=== PATIENT | female | born 1990 | race African-American/Black ===

== ENCOUNTER 2021-12-01 13:57 | Observation (INO) | payer MEDICAID ==
[~2021-12-01] VITALS: Ht 172.7 cm; Wt 104.3 kg
[2021-12-01] MEDS ORDERED: LACTATED RINGER'S 1,000 ML IV ONE (15:00)
[2021-12-01 15:52] LABS: Amphetamine Screen, Urine NEGATIVE (NEGATIVE); Barbiturate Scree,Urine NEGATIVE (NEGATIVE); Benzodiazephine Screen, Urine NEGATIVE (NEGATIVE); Cannabinoid Screen, Urine POSITIVE (NEGATIVE); Cocaine Screen, Urine NEGATIVE (NEGATIVE); Opiate Scree,Urine NEGATIVE (NEGATIVE); Phencyclidine Screen, Urine NEGATIVE (NEGATIVE)
[2021-12-01] MEDS ORDERED: BETAMETHASONE ACET (30mg/5ml) 5ml Vial 6mg/ml IM ONE (17:00)
[2021-12-01] MEDS ORDERED: TERBUTALINE SULFATE 1 MG/ML 1ML VIAL SC ONE (17:00)
[2021-12-01] MEDS ORDERED: NIF10C PO (17:10)
[2021-12-01] MEDS ORDERED: NIFEdipine 10 MG CAP PO ONE (18:30)
== END 2021-12-01 19:52 | disposition home or self-care (01) ==
LOC: LDRP 13:57 → UNDOADMOB 13:57 → LDRP 14:05
PROVIDERS: ADMIT Obstetrics & Gynecology; ATTEND Obstetrics & Gynecology
DX: O09.32 Supervision of pregnancy with insufficient antenatal care, second trimester (principal); O62.9 Abnormality of forces of labor, unspecified; Z3A.27 27 weeks gestation of pregnancy; Z79.899 Other long term (current) drug therapy
CPT/HCPCS: 76805; 80307; 96360; 96372; G0378; J0702

== ENCOUNTER 2021-12-02 16:20 | Observation (INO) | payer MEDICAID ==
[~2021-12-02] VITALS: Ht 172.7 cm; Wt 100.7 kg
[~2021-12-02 16:20] MED LIST: NIF10C PO
[2021-12-02] MEDS ORDERED: BETAMETHASONE ACET (30mg/5ml) 5ml Vial 6mg/ml IM ONE (16:45)
== END 2021-12-02 17:28 | disposition home or self-care (01) ==
LOC: UNDOADMOB 16:20 → LDRP 16:20 → UNDODISOB 17:28
PROVIDERS: ADMIT Obstetrics & Gynecology; ATTEND Obstetrics & Gynecology
DX: O60.03 Preterm labor without delivery, third trimester (principal); O99.333 Smoking (tobacco) complicating pregnancy, third trimester; F17.200 Nicotine dependence, unspecified, uncomplicated; O99.323 Drug use complicating pregnancy, third trimester; F12.90 Cannabis use, unspecified, uncomplicated; Z3A.29 29 weeks gestation of pregnancy
CPT/HCPCS: 59025; 81002; 96372; G0378

== ENCOUNTER 2021-12-07 03:47 | Inpatient (IN) | payer MEDICAID ==
[~2021-12-07] VITALS: BP 133/82
[2021-12-07] MEDS ORDERED: LACTATED RINGER'S 1,000 ML IV ONE ×2 (04:30)
[2021-12-07] MEDS ORDERED: ONDANSETRON HCL 4 MG/2 ML VIAL IV PRN (04:30)
[2021-12-07] MEDS ORDERED: ONDANSETRON HCL 4 MG/2 ML VIAL ONE (04:39)
[2021-12-07] MEDS ORDERED: TERBUTALINE SULFATE 1 MG/ML 1ML VIAL SC SCH (04:45)
[2021-12-07 05:15] LABS: Basophils # (auto) 0 10 ^3/uL (0-0.2); Basophils % (auto) 0.2 % (0.0-2.0); Eosinophils # (auto) 0 10 ^3/uL (0-0.8); Eosinophils % (auto) 0.3 % (0.0-7.0); Hematocrit 33.5 % (36.0-46.0); Hemoglobin 11.4 g/dL (12.2-16.2); Lymphocytes # (auto) 2.5 10 ^3/uL (0.4-5.4); Lymphocytes % (auto) 18.1 % (10.0-50.0); Mean Corpuscular Hemoglobin 30.8 pg (28.0-32.0); Mean Corpuscular Hgb Conc. 33.9 g/dL (32.0-36.0); Monocytes # (auto) 0.9 10 ^3/uL (0-1.3); Monocytes % (auto) 6.2 % (0.0-12.0); Neutrophils # (auto) 10.6 10 ^3/uL (1.6-8.6); Neutrophils % (auto) 75.2 % (37.0-80.0); Nucleated Red Blood Cells % 0.1 %; Red Blood Cells 3.68 10^6/uL (4.0-5.20); Red Cell Distribution Width 13.4 % (11.8-14.3); White Blood Cell 14.1 10^3/uL (4.4-10.8)
[2021-12-07] MEDS ORDERED: MAGNESIUM SULFATE 40MG/ML 1,000 ML IV SCH (05:15)
[2021-12-07] MEDS ORDERED: LORazepam 2MG/ML-1ML VIAL IV ONE (05:15)
[2021-12-07] MEDS ORDERED: MAGNESIUM SULFATE 100 ML IV ONE ×2 (05:15→05:20)
[2021-12-07] MEDS ORDERED: FAMOTIDINE (10MG/ML) 2ML VL IV ONE (05:15)
[2021-12-07 05:23] LABS: INR 0.87 (0.9-1.15); Partial Thromboplastin Time 27.1 sec (24.6-33.4)
[2021-12-07 05:27] LABS: Albumin 2.5 g/dL (3.4-5.0); Calcium 8.9 mg/dL (8.5-10.1); Potassium 3.6 mmol/L (3.5-5.1)
[2021-12-07 05:29] LABS: BUN/Creatinine Ratio 17.9
[2021-12-07 05:32] LABS: Bilirubin, Total 0.2 mg/dL (0.2-1.0); Total Protein 6.7 g/dL (6.4-8.2)
[2021-12-07] MEDS ORDERED: PROMETHAZINE HCL 25 MG/ML 1ML ONE (05:51)
[2021-12-07] MEDS ORDERED: BUTORPHANOL TARTRATE 2 MG/1 ML VIAL ONE (05:57)
[2021-12-07] MEDS ORDERED: BUTORPHANOL TARTRATE 2 MG/1 ML VIAL IV ONE (06:00)
[2021-12-07] MEDS ORDERED: AMPICILLIN SOD 2GM INJ 2 GM in SODIUM CHL 0.9% 100 ML IV ONE (06:00)
[2021-12-07 06:31] LABS: Alcohol, Urine < 3.0 mg/dL (0-10); Amphetamine Screen, Urine NEGATIVE (NEGATIVE); Barbiturate Scree,Urine NEGATIVE (NEGATIVE); Benzodiazephine Screen, Urine NEGATIVE (NEGATIVE); Cannabinoid Screen, Urine POSITIVE (NEGATIVE); Cocaine Screen, Urine NEGATIVE (NEGATIVE); Opiate Scree,Urine NEGATIVE (NEGATIVE); Phencyclidine Screen, Urine NEGATIVE (NEGATIVE)
[2021-12-07 06:35] LABS: Urine Bacteria FEW /hpf (None Seen); Urine Blood Negative /uL (Negative); Urine Specific Gravity 1.019 (1.001-1.035); Urine WBC 1 /hpf (0 - 5)
[2021-12-08 08:06] LABS: RPR Non Reactive (Non Reactive)
== END 2021-12-07 10:48 | disposition short-term general hospital (02) | DRG 566 ==
LOC: LDRP 03:47 → OBSVTOIN 04:42 → LDRP 05:09
PROVIDERS: ADMIT Obstetrics & Gynecology; ATTEND Obstetrics & Gynecology
DX: O60.03 Preterm labor without delivery, third trimester (principal); O99.323 Drug use complicating pregnancy, third trimester; F12.90 Cannabis use, unspecified, uncomplicated; Z20.822 Contact with and (suspected) exposure to COVID-19; Z3A.28 28 weeks gestation of pregnancy; O99.333 Smoking (tobacco) complicating pregnancy, third trimester
CPT/HCPCS: 36415; 59025; 76700; 76815; 80053; 80307; 81001; 81002; 83735; 85025; 85610; 85730; 86592; 86703; 86762; 86850; 86900; 86901; 87340; 94760; 96360; 96361; 96365; 96366; 96372; 96374; 96375; G0378; J2405; J3490